=== PATIENT | female | born 1995 | race African-American/Black ===

== ENCOUNTER 2021-01-15 13:43 | Outpatient (CLI) | payer OTHER | END 2021-01-15 13:44 | disposition home or self-care (01) | LOC: CSHULT 13:43 | PROVIDERS: ATTEND Family Medicine | DX: O09.893 Supervision of other high risk pregnancies, third trimester (principal); Z3A.36 36 weeks gestation of pregnancy | CPT/HCPCS: 76805 ==

== ENCOUNTER 2021-02-01 12:42 | Outpatient (CLI) | payer OTHER ==
[2021-02-01 22:22] LABS: SARS-CoV-2 PCR by NAA Not Detected (NotDetected)
== END 2021-02-01 12:43 | disposition home or self-care (01) ==
LOC: CSHLAB 12:42
PROVIDERS: ATTEND Family Medicine
DX: Z20.822 Contact with and (suspected) exposure to COVID-19 (principal)
CPT/HCPCS: U0003; U0005

== ENCOUNTER 2021-02-05 05:36 | Inpatient (IN) | payer OTHER ==
[2021-02-05] MEDS ORDERED: CEFAZOLIN 2 GM in Premix Bag 1 BAG IVPB SCH (06:00)
[2021-02-05] MEDS ORDERED: Ondansetron PF 4 MG/2 ML Vial IVP PRN ×3 (06:00→12:24)
[2021-02-05] MEDS ORDERED: Promethazine HCl 25 MG/ML VIAL IM PRN ×3 (06:00→12:24)
[2021-02-05] MEDS ORDERED: Bicitra 30 ML UDCUP PO PRN (06:00)
[2021-02-05] MEDS ORDERED: Famotidine/PF 20 mg/2ml Vial SLOW IVP PRN (06:00)
[2021-02-05] MEDS ORDERED: Lactated Ringer's 1,000 ML IV SCH (06:00)
[2021-02-05] MEDS ORDERED: hydrALAZINE 20 MG/ML VIAL SLOW IVP PRN ×2 (06:00→12:24)
[2021-02-05 06:17] VITALS: BMI 39.0
[2021-02-05 06:45] LABS: Hemoglobin 12.3 g/dL (12.0-15.5); Mean Corpuscular HGB CONC 32.8 g/dL (32.0-36.0); Mean Corpuscular Volume 82.4 fl (81.6-98.3); Mean Platelet Volume 11.9 fl (7.4-10.4); Platelet Count 179 10x3/uL (150-450); RBC Distribution Width 14.4 % (11.5-14.5); Red Blood Cell (RBC) Count 4.55 10x6/uL (3.90-5.03); White Blood Cell (WBC) Count 6.5 10x3/uL (3.5-10.5)
[2021-02-05] MEDS ORDERED: Morphine PF 10 MG/10 ML VIAL ONE (07:06)
[2021-02-05] MEDS ORDERED: Phenylephrine 40 MG/NS 250 ML 250 ML ONE (07:06)
[2021-02-05] MEDS ORDERED: Ondansetron PF 4 MG/2 ML Vial ONE (07:06)
[2021-02-05] MEDS ORDERED: Dexamethasone 4 mg/ml Vial ONE (07:06)
[2021-02-05] MEDS ORDERED: Oxytocin 10 UNITS/ML VIAL ONE ×2 (07:06→09:09)
[2021-02-05] MEDS ORDERED: diphenhydrAMINE 50 MG/ML VIAL IVP PRN (07:22)
[2021-02-05] MEDS ORDERED: Meperidine HCl/PF 25 MG/ML VIAL SLOW IVP PRN (07:22)
[2021-02-05] MEDS ORDERED: Ondansetron HCl/PF 4 MG/2 ML Vial IVP PRN (07:22)
[2021-02-05] MEDS ORDERED: HYDROmorphone 2 MG/ML VIAL SLOW IVP PRN (07:22)
[2021-02-05] MEDS ORDERED: Fentanyl 100 MCG/2 ML VIAL SLOW IVP PRN (07:22)
[2021-02-05] MEDS ORDERED: Naloxone HCl 0.4 mg/ml Vial IV PRN (07:22)
[2021-02-05] MEDS ORDERED: Ketorolac Tromethamine 30 MG/ML VIAL IVP PRN (07:22)
[2021-02-05] MEDS ORDERED: Hydrocerin (Eucerin) Cream 120 gm Jar TOP PRN (07:22)
[2021-02-05] MEDS ORDERED: Promethazine HCl 25 MG SUPP PR PRN (07:22)
[2021-02-05] MEDS ORDERED: Naloxone HCl 0.4 mg/ml Vial IVP PRN ×2 (07:22)
[2021-02-05 07:26] LABS: Syphilis Antibody Nonreactive (Nonreactive); Syphilis Antibody Index 0.05 S/CO (<1.00 Non-Reactive)
[2021-02-05 07:28] LABS: HIV (1/2) Antibody/Antigen Non-Reactive (NonReactive); HIV 1/2 INDEX 0.11 S/CO (<1.00)
[2021-02-05] MEDS ORDERED: Communication Order-Pharmacy FS SCH (07:30)
[2021-02-05] MEDS ORDERED: Ketorolac Tromethamine 30 MG/ML VIAL IVP SCH (07:30)
[2021-02-05 07:38] LABS: Hep B Surf Ag Non-Reactive S/CO (NonReactive)
[2021-02-05] MEDS ORDERED: Ketorolac Tromethamine 30 MG/ML VIAL ONE (08:57)
[2021-02-05] MEDS ORDERED: Lanolin Ointment 7 GM TUBE TOP PRN (12:24)
[2021-02-05] MEDS ORDERED: HYDROcodone/Acetaminophen 5/325 mg Tablet PO PRN (12:24)
[2021-02-05] MEDS ORDERED: Simethicone Chewable 80 MG TAB PO PRN (12:24)
[2021-02-05] MEDS ORDERED: Bisacodyl 10 MG SUPP PR PRN (12:24)
[2021-02-05] MEDS ORDERED: diphenhydrAMINE 25 MG CAP PO PRN (12:24)
[2021-02-05] MEDS ORDERED: Boostrix 0.5 ML (Tdap) VIAL IM ONE (12:24)
[2021-02-05] MEDS ORDERED: Meperidine HCl/PF 25 MG/ML VIAL IM PRN (12:24)
[2021-02-05] MEDS ORDERED: NS w/ Oxytocin 30 units 500 ML IV SCH (12:24)
[2021-02-05] MEDS ORDERED: Ferrous Sulfate 325 MG TAB PO SCH (12:45)
[2021-02-05] MEDS ORDERED: Docusate Calcium (SURFAK) 240 MG CAP PO SCH (12:45)
[2021-02-05] MEDS ORDERED: Prenatal Vitamin 1 TAB PO SCH (13:00)
[2021-02-05] MEDS: Ketorolac Tromethamine 30 MG/ML VIAL IVP SCH ×2 (13:57→20:14)
[2021-02-05] MEDS: Docusate Calcium (SURFAK) 240 MG CAP PO SCH (20:14)
[2021-02-05] MEDS: Ferrous Sulfate 325 MG TAB PO SCH (20:14)
[2021-02-06] MEDS: Ketorolac Tromethamine 30 MG/ML VIAL IVP SCH ×2 (02:17→08:17)
[2021-02-06 04:11] LABS: Hemoglobin 10.8 g/dL (12.0-15.5); Mean Corpuscular HGB CONC 32.5 g/dL (32.0-36.0); Mean Corpuscular Hemoglobin 27.1 pg (27.0-33.0); Mean Corpuscular Volume 83.4 fl (81.6-98.3); Mean Platelet Volume 11.9 fl (7.4-10.4); Platelet Count 167 10x3/uL (150-450); RBC Distribution Width 14.4 % (11.5-14.5); Red Blood Cell (RBC) Count 3.98 10x6/uL (3.90-5.03); White Blood Cell (WBC) Count 14.4 10x3/uL (3.5-10.5)
[2021-02-06] MEDS: Ferrous Sulfate 325 MG TAB PO SCH ×2 (07:32→21:10)
[2021-02-06] MEDS: Docusate Calcium (SURFAK) 240 MG CAP PO SCH ×2 (08:17→21:11)
[2021-02-06] MEDS: Prenatal Vitamin 1 TAB PO SCH (08:17)
[2021-02-06] MEDS: HYDROcodone/Acetaminophen 5/325 mg Tablet PO PRN ×4 (10:38→23:25)
[2021-02-06] MEDS: Ibuprofen 800 MG TAB PO SCH ×2 (14:40→21:11)
[2021-02-07] MEDS: HYDROcodone/Acetaminophen 5/325 mg Tablet PO PRN ×3 (04:17→18:49)
[2021-02-07] MEDS: Ibuprofen 800 MG TAB PO SCH ×3 (05:09→21:32)
[2021-02-07] MEDS: Ferrous Sulfate 325 MG TAB PO SCH ×2 (08:15→21:33)
[2021-02-07] MEDS: Prenatal Vitamin 1 TAB PO SCH (08:19)
[2021-02-07] MEDS: Docusate Calcium (SURFAK) 240 MG CAP PO SCH ×2 (08:19→21:33)
[2021-02-08] MEDS: HYDROcodone/Acetaminophen 5/325 mg Tablet PO PRN ×3 (04:17→13:05)
[2021-02-08] MEDS: Ibuprofen 800 MG TAB PO SCH ×2 (05:54→14:07)
[2021-02-08 08:15] VITALS: BP 111/58; TEMP 98
[2021-02-08] MEDS: Ferrous Sulfate 325 MG TAB PO SCH (08:35)
[2021-02-08] MEDS: Prenatal Vitamin 1 TAB PO SCH (08:45)
[2021-02-08] MEDS: Docusate Calcium (SURFAK) 240 MG CAP PO SCH (08:45)
== END 2021-02-08 14:40 | disposition home or self-care (01) | DRG 788 ==
LOC: CSHLD 05:36 → CSHPP 12:00
PROVIDERS: ADMIT Family Medicine; ATTEND Family Medicine
PROC: 10D00Z1 Extraction of Products of Conception, Low, Open Approach (ICD-10-PCS; principal; 2021-02-05)
DX: O34.211 Maternal care for low transverse scar from previous cesarean delivery (principal); Z3A.39 39 weeks gestation of pregnancy; Z37.0 Single live birth
CPT/HCPCS: 36415; 51702; 85027; 86780; 86850; 86880; 86900; 86901; 86905; 87340; 87389; J0690; J1100; J1200; J1885; J2274; J2405; J2590; J7120

== ENCOUNTER 2021-09-14 23:18 | Emergency (ER) | payer OTHER | END 2021-09-15 02:34 | disposition home or self-care (01) | LOC: CSHERS 23:18 | DX: N93.9 Abnormal uterine and vaginal bleeding, unspecified (principal) | CPT/HCPCS: 76856 ==

== ENCOUNTER 2022-05-28 12:26 | Outpatient (CLI) | payer OTHER | END 2022-05-28 12:27 | disposition home or self-care (01) | LOC: CSHULT 12:26 | PROVIDERS: ATTEND Family Medicine | DX: O09.892 Supervision of other high risk pregnancies, second trimester (principal); Z3A.20 20 weeks gestation of pregnancy | CPT/HCPCS: 76805 ==

== ENCOUNTER 2022-10-01 09:45 | Inpatient (IN) | payer OTHER ==
[2022-10-01] MEDS ORDERED: Promethazine HCl 25 MG/ML VIAL IM PRN ×3 (10:27→17:00)
[2022-10-01] MEDS ORDERED: Lactated Ringer's 1,000 ML IV SCH (10:27)
[2022-10-01] MEDS ORDERED: CEFAZOLIN 3 GM in Sodium Chloride 0.9% 100 ML IVPB SCH (10:27)
[2022-10-01] MEDS ORDERED: Bicitra 30 ML UDCUP PO PRN (10:27)
[2022-10-01] MEDS ORDERED: Tranexamic Acid 1,000 MG/10 ML VIAL IVP PRN (10:27)
[2022-10-01] MEDS ORDERED: Misoprostol 200 MCG TAB PR PRN (10:27)
[2022-10-01] MEDS ORDERED: NS w/ Oxytocin 30 units 500 ML IV SCH (10:27)
[2022-10-01] MEDS ORDERED: Methylergonovine 0.2 MG/ML VIAL IM PRN (10:27)
[2022-10-01] MEDS ORDERED: Famotidine/PF 20 mg/2ml Vial SLOW IVP PRN (10:27)
[2022-10-01] MEDS ORDERED: hydrALAZINE 20 MG/ML VIAL SLOW IVP PRN ×2 (10:27→17:00)
[2022-10-01] MEDS ORDERED: Ondansetron PF 4 MG/2 ML Vial IVP PRN ×3 (10:27→17:00)
[2022-10-01] MEDS ORDERED: Diphenoxylate HCl/Atropine Tablet PO PRN (10:27)
[2022-10-01] MEDS ORDERED: Carboprost 250 MCG/ML AMP IM PRN (10:27)
[2022-10-01 10:31] VITALS: BMI 40.3
[2022-10-01 10:57] LABS: Hematocrit 35.1 % (34.9-44.5); Hemoglobin 11.4 g/dL (12.0-15.5); Mean Corpuscular HGB CONC 32.5 g/dL (32.0-36.0); Mean Corpuscular Hemoglobin 24.8 pg (27.0-33.0); Mean Corpuscular Volume 76.3 fl (81.6-98.3); Mean Platelet Volume 11.4 fl (7.4-10.4); Platelet Count 184 10x3/uL (150-450); White Blood Cell (WBC) Count 5.9 10x3/uL (3.5-10.5)
[2022-10-01 11:28] LABS: HBSAg Index 0.19 S/CO (0-0.99); Hep B Surf Ag - L&D Non-Reactive S/CO (NonReactive); Syphilis Antibody Nonreactive (Nonreactive); Syphilis Antibody Index 0.05 S/CO (<1.00 Non-Reactive)
[2022-10-01] MEDS ORDERED: fentaNYL 50 mcg/mL 1 mL Vial ONE (12:13)
[2022-10-01] MEDS ORDERED: Phenylephrine 40 MG/NS 250 ML 250 ML ONE (12:13)
[2022-10-01] MEDS ORDERED: Morphine PF 10 MG/10 ML VIAL ONE (12:13)
[2022-10-01] MEDS ORDERED: Oxytocin 10 UNITS/ML VIAL ONE ×3 (12:13→13:01)
[2022-10-01] MEDS ORDERED: PHENYLEPHRINE-NS 100 MCG/ML 10 ML SYRINGE ONE (13:01)
[2022-10-01] MEDS ORDERED: ePHEDrine Sulfate 50 MG/10 ML VIAL ONE (13:01)
[2022-10-01] MEDS ORDERED: Ondansetron PF 4 MG/2 ML Vial ONE (13:01)
[2022-10-01] MEDS ORDERED: Promethazine HCl 25 MG SUPP PR PRN (13:38)
[2022-10-01] MEDS ORDERED: Ondansetron HCl/PF 4 MG/2 ML Vial IVP PRN (13:38)
[2022-10-01] MEDS ORDERED: Meperidine HCl/PF 25 MG/ML VIAL SLOW IVP PRN (13:38)
[2022-10-01] MEDS ORDERED: Naloxone HCl 0.4 mg/ml Vial IVP PRN ×2 (13:38)
[2022-10-01] MEDS ORDERED: Moisturizing Cream (Eucerin) 113 GM JAR TOP PRN (13:38)
[2022-10-01] MEDS ORDERED: HYDROmorphone 2 MG/ML VIAL SLOW IVP PRN (13:38)
[2022-10-01] MEDS ORDERED: Naloxone HCl 0.4 mg/ml Vial IV PRN (13:38)
[2022-10-01] MEDS ORDERED: diphenhydrAMINE 50 MG/ML VIAL IVP PRN (13:38)
[2022-10-01] MEDS ORDERED: Ketorolac Tromethamine 30 MG/ML VIAL IVP PRN (13:38)
[2022-10-01] MEDS ORDERED: Fentanyl 100 MCG/2 ML VIAL SLOW IVP PRN (13:38)
[2022-10-01] MEDS ORDERED: Communication Order-Pharmacy FS SCH (13:45)
[2022-10-01] MEDS ORDERED: Ketorolac Tromethamine 30 MG/ML VIAL IVP SCH (13:45)
[2022-10-01] MEDS ORDERED: Ketorolac Tromethamine 30 MG/ML VIAL ONE (15:02)
[2022-10-01] MEDS ORDERED: diphenhydrAMINE 50 MG/ML VIAL ONE (15:02)
[2022-10-01] MEDS ORDERED: Simethicone Chewable 80 MG TAB PO PRN (17:00)
[2022-10-01] MEDS ORDERED: Lanolin Ointment 7 GM TUBE TOP PRN (17:00)
[2022-10-01] MEDS ORDERED: Bisacodyl 10 MG SUPP PR PRN (17:00)
[2022-10-01] MEDS ORDERED: Boostrix 0.5 ML (Tdap) VIAL (>/=7 yrs of age) IM ONE (17:00)
[2022-10-01] MEDS: Docusate 100 MG CAP PO SCH (21:20)
[2022-10-01] MEDS: Ferrous Sulfate 325 MG TAB PO SCH (21:21)
[2022-10-01] MEDS: Ketorolac Tromethamine 30 MG/ML VIAL IVP SCH (21:33)
[2022-10-01] MEDS: diphenhydrAMINE 25 MG CAP PO PRN (21:40)
[2022-10-02] MEDS: Ketorolac Tromethamine 30 MG/ML VIAL IVP SCH ×2 (01:33→07:24)
[2022-10-02 03:20] LABS: Hematocrit 31.4 % (34.9-44.5); Mean Corpuscular HGB CONC 31.8 g/dL (32.0-36.0); Mean Corpuscular Hemoglobin 24.9 pg (27.0-33.0); Mean Corpuscular Volume 78.1 fl (81.6-98.3); Mean Platelet Volume 11.8 fl (7.4-10.4); Platelet Count 157 10x3/uL (150-450); RBC Distribution Width 14.8 % (11.5-14.5); Red Blood Cell (RBC) Count 4.02 10x6/uL (3.90-5.03); White Blood Cell (WBC) Count 9.7 10x3/uL (3.5-10.5)
[2022-10-02] MEDS: Ferrous Sulfate 325 MG TAB PO SCH (07:26)
[2022-10-02] MEDS: Prenatal Vitamin 1 TAB PO SCH (07:26)
[2022-10-02] MEDS: Ibuprofen 800 MG TAB PO SCH ×2 (13:52→21:35)
[2022-10-02] MEDS: Docusate 100 MG CAP PO SCH ×2 (14:00→21:35)
[2022-10-02] MEDS: HYDROcodone/Acetaminophen 5/325 mg Tablet PO PRN ×2 (14:05→20:24)
[2022-10-02] MEDS: diphenhydrAMINE 25 MG CAP PO PRN ×2 (14:06→20:23)
[2022-10-03] MEDS: HYDROcodone/Acetaminophen 5/325 mg Tablet PO PRN ×5 (00:47→21:36)
[2022-10-03] MEDS: Ferrous Sulfate 325 MG TAB PO SCH ×2 (00:47→07:32)
[2022-10-03] MEDS: Ibuprofen 800 MG TAB PO SCH ×3 (05:48→21:35)
[2022-10-03] MEDS: Docusate 100 MG CAP PO SCH ×2 (08:13→21:35)
[2022-10-03] MEDS: Prenatal Vitamin 1 TAB PO SCH (08:13)
[2022-10-04] MEDS: Ferrous Sulfate 325 MG TAB PO SCH ×2 (00:13→07:45)
[2022-10-04] MEDS: Ibuprofen 800 MG TAB PO SCH ×2 (06:14→14:26)
[2022-10-04] MEDS: Prenatal Vitamin 1 TAB PO SCH (07:38)
[2022-10-04] MEDS: Docusate 100 MG CAP PO SCH (07:39)
[2022-10-04 08:00] VITALS: BP 117/67; TEMP 97.9
[2022-10-04] MEDS: HYDROcodone/Acetaminophen 5/325 mg Tablet PO PRN (16:00)
== END 2022-10-04 17:25 | disposition home or self-care (01) | DRG 788 ==
LOC: CSHLD 09:45 → CSHPP 16:32
PROVIDERS: ADMIT Family Medicine; ATTEND Family Medicine
PROC: 10D00Z1 Extraction of Products of Conception, Low, Open Approach (ICD-10-PCS; principal; 2022-10-01)
DX: O34.211 Maternal care for low transverse scar from previous cesarean delivery (principal); Z3A.39 39 weeks gestation of pregnancy; Z37.0 Single live birth; O24.420 Gestational diabetes mellitus in childbirth, diet controlled; E66.9 Obesity, unspecified; O99.214 Obesity complicating childbirth; Z79.899 Other long term (current) drug therapy; O32.1XX0 Maternal care for breech presentation, not applicable or unspecified
CPT/HCPCS: 36415; 51702; 85027; 86780; 86850; 86900; 86901; 87340; J1200; J1885; J2274; J2405; J2590; J3010

== ENCOUNTER 2023-08-25 20:52 | Emergency (ER) | payer MEDICAID | END 2023-08-25 23:14 | disposition home or self-care (01) | LOC: CSHERS 20:52 | DX: O99.891 Other specified diseases and conditions complicating pregnancy (principal); R10.9 Unspecified abdominal pain; Z3A.01 Less than 8 weeks gestation of pregnancy | CPT/HCPCS: 76856; 81001 ==

== ENCOUNTER 2023-08-29 10:50 | Emergency (ER) | payer MEDICAID ==
[2023-08-29 12:19] LABS: #Basophils 0.04 10x3/uL (0.0-0.2); #Eosinphils 0.16 10x3/uL (0.0-0.5); #Monocytes 0.55 10x3/uL (0.0-1.1); #Neutrophils 3.01 10x3/uL (1.5-8.4); %Basophils 0.6 % (0.0-2.0); %Eosinophils 2.5 % (0.0-6.0); %Lymphocytes 41.7 % (18.0-47.0); %Monocytes 8.5 % (0.0-10.0); %Neutrophils 46.4 % (40.0-75.0); Hematocrit 38.7 % (34.9-44.5); Hemoglobin 12.9 g/dL (12.0-15.5); Mean Corpuscular HGB CONC 33.3 g/dL (32.0-36.0); Mean Corpuscular Hemoglobin 28.3 pg (27.0-33.0); Mean Corpuscular Volume 84.9 fL (81.6-98.3); Mean Platelet Volume 10.3 fL (7.4-10.4); Platelet Count 243 10x3/uL (150-450); RBC Distribution Width 13.2 % (11.5-14.5); Red Blood Cell (RBC) Count 4.56 10x6/uL (3.90-5.03); White Blood Cell (WBC) Count 6.5 10x3/uL (3.5-10.5)
== END 2023-08-29 13:19 | disposition home or self-care (01) ==
LOC: CSHERS 10:50
DX: O03.4 Incomplete spontaneous abortion without complication (principal)
CPT/HCPCS: 36415; 76856; 84702; 85025